=== PATIENT | female | born 1995 | race Caucasian/White ===

== ENCOUNTER 2025-06-04 08:55 | Emergency (ER) | payer OTHER ==
[2025-06-04 09:50] LABS: #Basophils 0.04 10x3/uL (0.0-0.2); #Eosinophils 0.13 10x3/uL (0.0-0.7); #Monocytes 0.70 10x3/uL (0.11-0.59); #Neutrophils 8.13 10x3/uL (1.40-6.50); %Basophils 0.3 % (0.0-1.0); %Eosinophils 1.1 % (0.0-10.0); %Lymphocytes 22.2 % (21.0-51.0); %Monocytes 6.0 % (0.0-10.0); %Neutrophils 70.0 % (42.0-75.0); Hematocrit 39.4 % (36.0-47.0); Hemoglobin 13.0 g/dL (12.0-16.0); Mean Corpuscular Hemoglobin 27.4 pg (27.0-31.0); Mean Corpuscular Volume 82.9 fL (78.0-98.0); Platelet Count 289 10x3/uL (130-400); Red Blood Cell (RBC) Count 4.75 mill/uL (4.20-5.40); White Blood Cell (WBC) Count 11.63 10x3/uL (4.8-10.8)
[2025-06-04] MEDS ORDERED: Acetaminophen 500 MG TAB ONE (09:51)
[2025-06-04] MEDS ORDERED: Metoclopramide HCl 10 MG (2 mL) VIAL ONE (09:52)
[2025-06-04] MEDS ORDERED: diphenhydrAMINE 50 MG/ML VIAL ONE (09:52)
[2025-06-04 10:09] LABS: ALT (SGPT) 18 U/L (Less than 34); AST (SGOT) 21 U/L (11-34); Albumin 3.7 g/dL (3.1-4.5); Alkaline Phosphatase 75 U/L (40-110); Anion Gap 11 mmol/L (10-20); BHCG - Serum Negative (NEGATIVE); BUN (Urea Nitrogen) 10 mg/dL (7.0-18.7); Bilirubin, Total 0.3 mg/dL (0.3-1.2); Calc. Creatinine Clearance 0 mL/min (70-130); Calcium 9.4 mg/dL (7.8-10.44); Carbon Dioxide 23 mmol/L (22-29); Chloride 106 mmol/L (98-107); Globulin 3.9 g/dL (2.4-3.5); Glucose 89 mg/dL (70-105); Potassium 4.0 mmol/L (3.5-5.1); Pregs Control Background? CLEAR/WHITE (CLR/WHITE); Pregs Control Bar Appear? YES (CONTROL BAR); Sodium 136 mmol/L (136-145)
== END 2025-06-04 10:50 | disposition home or self-care (01) ==
LOC: ERS 08:55
DX: I10 Essential (primary) hypertension (principal); E03.9 Hypothyroidism, unspecified; Z79.899 Other long term (current) drug therapy
CPT/HCPCS: 70450; 71046; 80053; 84484; 84703; 85025; 93005; 96365; 96375; J1200; J2765

== ENCOUNTER 2025-06-05 16:30 | Emergency (ER) | payer OTHER ==
[2025-06-05] MEDS ORDERED: diphenhydrAMINE 50 MG/ML VIAL ONE (18:22)
[2025-06-05] MEDS ORDERED: Metoclopramide HCl 10 MG (2 mL) VIAL ONE (18:22)
[2025-06-05 18:53] LABS: #Basophils 0.05 10x3/uL (0.0-0.2); #Eosinophils 0.04 10x3/uL (0.0-0.7); #Monocytes 0.74 10x3/uL (0.11-0.59); #Neutrophils 12.98 10x3/uL (1.40-6.50); %Basophils 0.3 % (0.0-1.0); %Eosinophils 0.2 % (0.0-10.0); %Lymphocytes 17.2 % (21.0-51.0); %Monocytes 4.4 % (0.0-10.0); %Neutrophils 77.5 % (42.0-75.0); Hematocrit 39.6 % (36.0-47.0); Hemoglobin 13.0 g/dL (12.0-16.0); Mean Corpuscular Hemoglobin 27.2 pg (27.0-31.0); Mean Corpuscular Volume 82.8 fL (78.0-98.0); Platelet Count 323 10x3/uL (130-400); Red Blood Cell (RBC) Count 4.78 mill/uL (4.20-5.40); White Blood Cell (WBC) Count 16.76 10x3/uL (4.8-10.8)
[2025-06-05 19:01] LABS: BHCG - Serum Negative (NEGATIVE); Pregs Control Background? CLEAR/WHITE (CLR/WHITE); Pregs Control Bar Appear? YES (CONTROL BAR)
[2025-06-05 19:12] LABS: ALT (SGPT) 18 U/L (Less than 34); AST (SGOT) 36 U/L (11-34); Albumin 4.0 g/dL (3.1-4.5); Alkaline Phosphatase 76 U/L (40-110); Anion Gap 14 mmol/L (10-20); BUN (Urea Nitrogen) 12 mg/dL (7.0-18.7); Bilirubin, Total 0.3 mg/dL (0.3-1.2); Calc. Creatinine Clearance 0 mL/min (70-130); Calcium 9.6 mg/dL (7.8-10.44); Carbon Dioxide 20 mmol/L (22-29); Chloride 105 mmol/L (98-107); Globulin 4.0 g/dL (2.4-3.5); Glucose 96 mg/dL (70-105); Potassium 3.9 mmol/L (3.5-5.1); Sodium 135 mmol/L (136-145)
== END 2025-06-05 22:00 | disposition home or self-care (01) ==
LOC: ERS 16:30
DX: I10 Essential (primary) hypertension (principal); R07.89 Other chest pain; E03.9 Hypothyroidism, unspecified; Z79.899 Other long term (current) drug therapy; Z79.890 Hormone replacement therapy
CPT/HCPCS: 71045; 71275; 80053; 83690; 84484; 84703; 85025; 87428; 93005; 96365; 96375; J1200; J2765